=== PATIENT | female | born 1990 | race Caucasian/White ===

== ENCOUNTER 2018-03-26 08:29 | Inpatient (IN) | payer OTHER ==
[~2018-03-26 08:29] MED LIST: Acetaminophen 325 MG Tab PO PRN; Lidocaine 1% 30 ML SDV INJECT PRN; Ondansetron 4 MG/2 ML SDV IV PRN; Oxytocin/Normal Saline 30 UNIT/500 ML BAG IV SCH; Sodium Chloride 0.9% 10 ML Syringe FLUSH PRN; Tranexamic Acid 1,000 MG in Sodium Chloride 0.9% 100 ML IV PRN
[2018-03-26] MEDS ORDERED: Lactated Ringers 500 ML IV ONE (08:45)
[2018-03-26] MEDS: Misoprostol 25 MCG (1/4 of 100 MCG) Tab VAG PRN ×2 (10:23→14:42)
[2018-03-26] MEDS ORDERED: Misoprostol 400 MCG (4 X 100 MCG TAB) RECTAL PRN (12:00)
[2018-03-26] MEDS ORDERED: Methylergonovine 0.2 MG/1 ML Amp IM PRN (12:00)
[2018-03-26] MEDS ORDERED: Carboprost Tromethamine 250 MCG/1 ML Amp IM PRN (12:00)
[2018-03-26] MEDS ORDERED: Oxytocin/Normal Saline 30 UNIT/500 ML BAG IV SCH (12:45)
[2018-03-26] MEDS: Lactated Ringers 1,000 ML IV SCH ×2 (18:19→19:45)
--- NOTE | 2018-03-26 19:42 | PCM.LDHP ---
L&D History of Present Illness - General Date of Service: 03/26/18 (Admit H&P/OB induction) Admit Problem/Dx: Patient Status Order with Admit Dx/Problem 03/25/18 23:51 Patient Status [ADT] Routine Admission Diagnosis/Problem Admission Diagnosis/Problem Post-term infant with 40-42 completed weeks of gestation Source of Information: Patient, Family, Old Records, Provider, Other ( otes/EPIC [regnancy episode from [facility]) History Limitations: Reports: No Limitations - History of Present Illness Introduction:: Kelsey is a delightful 27yo WF @ 41weeks who presented to the labor and delivery floor for induction due to post-dates. - Related Data Allergies/Adverse Reactions: Allergies Allergy/AdvReac Type Severity Reaction Status Date / Time Penicillins Allergy Cannot Verified 01/21/18 13:09 Remember Home Medications: Home Meds Iron 325 mg PO BID 04/22/16 [History] Vits #93/Iron Fum/FA [ Formula Tablet] 1 tab PO DAILY 04/22/16 [History] Past Medical History HEENT History: Reports: None Cardiovascular History: Reports: None Respiratory History: Reports: None Gastrointestinal History: Reports: None Genitourinary History: Reports: None CLINICAL ORTHOPTIST History: Reports: , Therapeutic Other OB/BYN History: h Musculoskeletal History: Reports: None Neurological History: Reports: None Psychiatric History: Reports: None Endocrine/Metabolic History: Reports: None Hematologic History: Reports: Anemia Other Hematologic History: taking iron BID Immunologic History: Reports: None Oncologic (Cancer) History: Reports: None Dermatologic History: Reports: None - Infectious Disease History Infectious Disease History: Reports: Chicken Pox - Past Surgical History Head Surgeries/Procedures: Reports: None HEENT Surgical History: Reports: Tonsillectomy Musculoskeletal Surgical History: Reports: Arthroscopic Knee Social & Family History - Family History Family Medical History: Noncontributory Endocrine/Metabolic: Reports: Other (See Below) Other Endocrine/Metabolic Family History: mo;ther - "thyroid disease".  - Tobacco Use Smoking Status *Q: Never Smoker Second Hand Smoke Exposure: No - Caffeine Use Caffeine Use: Reports: Soda - Recreational Drug Use Recreational Drug Use: No H&P Review of Systems - Review of Systems: Review Of Systems: See Below General: Reports: No Symptoms HEENT: Reports: No Symptoms Pulmonary: Reports: No Symptoms Cardiovascular: Reports: No Symptoms Gastrointestinal: Reports: No Symptoms Genitourinary: Reports: No Symptoms Musculoskeletal: Reports: No Symptoms Skin: Reports: No Symptoms Psychiatric: Reports: No Symptoms Neurological: Reports: No Symptoms Hematologic/Lymphatic: Reports: No Symptoms Immunologic: Reports: No Symptoms L&D Exam - Exam Exam: See Below - Vital Signs Vital Signs: Last Vital Signs Temp 99.0 F 03/26/18 17:30 Pulse 66 03/26/18 17:30 Resp 18 03/26/18 17:30 BP 141/70 H 03/26/18 17:30 Pulse Ox 99 03/26/18 08:34 Weight: 251 lb - OB Specific Contraction Duration (sec): 60-90 Contraction Frequency (min): 1.5-2.5 Contraction Intensity: Mild to Moderate - Cabrera Score Cabrera Score Cervix Position: Posterior Cabrera Score Consistency: Medium Cabrera Score Effacement: 51-70% Cabrera Score Dilation: 1-2 cm Cabrera Score Infant's Station: -2 Cabrera Score Total: 5 - Exam General: Alert, Oriented HEENT: PERRLA, Conjunctiva Clear, EACs Clear, EOMI, Hearing Intact, Mucosa Moist & [place], Nares Patent, Normal Nasal Septum, Posterior Pharynx Clear, TMs Clear Neck: Supple, Trachea Midline Lungs: Clear to Auscultation, Normal Respiratory Effort Cardiovascular: Regular Rate, Regular Rhythm GI/Abdominal Exam: Normal Bowel Sounds, Soft, Non-Tender, No Organomegaly, No Distention, No Abnormal Bruit, No Mass, Pelvis Stable Rectal Exam: Normal Exam, Normal Rectal Tone Genitourinary: Normal external exam, Normal bimanual exam, Normal speculum exam Back Exam: Normal Inspection, Full Range of Motion Extremities: Normal Inspection, Normal Range of Motion, Non-Tender, No Pedal Edema, Normal Capillary Refill Skin: Warm, Dry, Intact Neurological: Cranial Nerves Intact, Reflexes Equal Bilateral Psychiatric: Alert, Normal Affect, Normal Mood - Patient Data Lab Results Last 24 hrs: Laboratory Results - last 24 hr 03/26/18 Range/Units 08:35 WBC 9.4 (5.0-10.0) 10^3/uL RBC 3.65 L (4.2-5.4) 10^6/uL Hgb 11.1 L (12.0-16.0) g/dL Hct 34.4 L (37.0-47.0) % MCV 94.2 (80-100) fL MCH 30.4 (27.0-34.0) pg MCHC 32.3 L (33.0-35.0) g/dL Plt Count 193 (150-450) 10^3/uL Result Diagrams: 03/26/18 08:35 Problem List Initiated/Reviewed/Updated: Yes Orders Last 24hrs: Active Orders 24 hr Category Date Time Status Patient Status [ADT] Routine ADT 03/25/18 23:51 Active Communication Order [RC] ASDIRECTED Care 03/25/18 23:51 Active Communication Order [RC] ASDIRECTED Care 03/25/18 23:51 Active Communication Order [RC] ASDIRECTED Care 03/25/18 23:51 Active Communication Order [RC] ASDIRECTED Care 03/25/18 23:51 Active Communication Order [RC] ASDIRECTED Care 03/25/18 23:51 Active Communication Order [RC] ASDIRECTED Care 03/26/18 00:02 Active Non Stress Test [RC] PER UNIT ROUTINE Care 03/25/18 23:51 Active Notify Provider Vital Signs OB [RC] ASDIRECTED Care 03/25/18 23:51 Active Notify Provider [RC] PRN Care 03/25/18 23:51 Active Notify Provider [RC] PRN Care 03/25/18 23:51 Active Notify Provider [RC] PRN Care 03/26/18 00:02 Active Notify Provider [RC] STAT Care 03/25/18 23:51 Active Peripheral IV Care [RC] . DIRECTED Care 03/25/18 23:52 Active Pump Management, Intrathecal [RC] ASDIRECTED Care 03/26/18 08:00 Active Up ad Teresa [RC] PER UNIT ROUTINE Care 03/25/18 23:51 Active Vaginal Exam [RC] PRN Care 03/25/18 23:51 Active Vital Signs [RC] PER UNIT ROUTINE Care 03/25/18 23:51 Active Acetaminophen [Tylenol] Med 03/25/18 23:51 Active 650 mg PO Q4H PRN Carboprost Tromethamine [Hemabate DS] Med 03/26/18 12:00 Active 250 mcg IM ASDIRECTED PRN Lactated Ringers [Ringers, Lactated] 1,000 ml Med 03/25/18 23:45 Active IV ASDIRECTED Lidocaine 1% [Xylocaine-MPF 1%] Med 03/26/18 08:00 Active 30 ml INJECT ASDIRECTED PRN Methylergonovine [Methergine] Med 03/26/18 12:00 Active 0.2 mg IM ASDIRECTED PRN Ondansetron [Zofran] Med 03/26/18 00:01 Active 4 mg IV Q4H PRN Oxytocin/Normal Saline [Pitocin in NS 30 UNIT/500 ML] Med 03/26/18 00:15 Active 30 unit in 500 ml IV TITRATE Oxytocin/Normal Saline [Pitocin in NS 30 UNIT/500 ML] Med 03/26/18 12:45 Active 30 unit in 500 ml IV TITRATE Sodium Chloride 0.9% [Saline Flush] Med 03/25/18 23:51 Active 10 ml FLUSH ASDIRECTED PRN Sodium Chloride 0.9% [Saline Flush] Med 03/26/18 00:01 Active 10 ml FLUSH ASDIRECTED PRN Tranexamic Acid [Cyklokapron] 1,000 mg Med 03/26/18 00:01 Active Sodium Chloride 0.9% [Normal Saline] 100 ml IV ONETIME miSOPROStol [Cytotec] Med 03/26/18 08:00 Active 50 mcg VAG Q4H PRN miSOPROStol [Cytotec] Med 03/26/18 12:00 Active 800 mcg RECTAL ASDIRECTED PRN Peripheral IV Insertion Adult [OM.PC] Urgent Oth 03/25/18 23:51 Ordered Saline Lock Insert [OM.PC] Routine Oth 03/26/18 00:02 Ordered Resuscitation Status Routine Resus Stat 03/26/18 00:01 Ordered Medication Orders Acetaminophen (Tylenol) 650 mg PO Q4H PRN PRN Reason: Pain/Fever Carboprost Tromethamine (Hemabate Ds) 250 mcg IM ASDIRECTED PRN PRN Reason: HEMORRHAGE Lactated Ringer's (Ringers, Lactated) 1,000 mls @ 125 mls/hr IV ASDIRECTED PATITO Last Admin: 03/26/18 18:19 Dose: 125 mls/hr Oxytocin/Sodium Chloride (Pitocin In Ns 30 Unit/500 Ml) 30 unit in 500 mls @ 2 mls/hr IV TITRATE PATITO; Protocol Tranexamic Acid 1,000 mg/ (Sodium Chloride) 110 mls @ 660 mls/hr IV ONETIME PRN PRN Reason: Bleeding Oxytocin/Sodium Chloride (Pitocin In Ns 30 Unit/500 Ml) 30 unit in 500 mls @ 2 mls/hr IV TITRATE PATITO; Protocol Lidocaine HCl (Xylocaine-Mpf 1%) 30 ml INJECT ASDIRECTED PRN PRN Reason: Perineal Repair Methylergonovine Maleate (Methergine) 0.2 mg IM ASDIRECTED PRN PRN Reason: Hemorrhage Misoprostol (Cytotec) 50 mcg VAG Q4H PRN PRN Reason: cervical ripening Last Admin: 03/26/18 14:42 Dose: 50 mcg Admin: 03/26/18 10:23 Dose: 50 mcg Misoprostol (Cytotec) 800 mcg RECTAL ASDIRECTED PRN PRN Reason: Hemorrhage Ondansetron HCl (Zofran) 4 mg IV Q4H PRN PRN Reason: Nausea/Vomiting Sodium Chloride (Saline Flush) 10 ml FLUSH ASDIRECTED PRN PRN Reason: Keep Vein Open Sodium Chloride (Saline Flush) 10 ml FLUSH ASDIRECTED PRN PRN Reason: Keep Vein Open Assessment/Plan Comment:: Assessment: 27yo @ 41 weeks induction for post-dates blood type B+ GBS negative RI Plan Admit to OB for induction due to postdates. discussed options--will go with the Cytotec for cervical ripening as discussed. CBC, routine admit orders further management pending her course in labor. consider repeat cytotec, pitocin infusion or AROM if indicated. see clinic notes, EPIC episode for further details. [facility]mb
--- NOTE | 2018-03-26 20:48 | PCM.DEL ---
L & D Note - General Info Date of Service: 03/26/18 (time of : 2005) Mother's Due Date: 03/19/18 - Delivery Note Labor: Augmented by ARM Cervical Ripening Method: Misoprostil Delivery Outcome: Livebirth Infant Delivery Method: Spontaneous Vaginal Delivery-Single Infant Delivery Mode: Spontaneous Presentation: Left Occiput Anterior (ROBERT) Nuchal Cord: None Anesthesia Type: None, Local Anesthetic: Lidocaine (Xylocaine) 1% Plain Local Anesthetic Volume: 5cc Amniotic Fluid Description: Clear Episiotomy Type: None Laceration: None Placenta: Intact, Spontaneous Cord: 3 Vessels Estimated Blood Loss: 100 Resuscitation Needed: No : Bulb Syringe Provider: Khushboo Macedo Score 1 min: 8 Score 5 min: 9 Induction Criteria - Induction Gestational Age >/= 39 wks: Yes Medical Indication: postdates >41 weeks Estimated Pelvis: Reports: Adequate Reassuring Monitoring Strip: Yes Absence of Tachy Systole: Yes - Augmentation Estimated Pelvis: Reports: Adequate Weight Estimated:: Reports: AGA Reassuring Monitoring Strip: Yes Absence of Tachy Systole: Yes - General Info Date of Service: 03/26/18 (Time of Delivery ) Admission Dx/Problem (Free Text): Patient Status Order with Admit Dx/Problem 03/25/18 23:51 Patient Status [ADT] Routine Admission Diagnosis/Problem Admission Diagnosis/Problem Post-term with 40-42 completed weeks of gestation - Patient Data Vitals - Most Recent: Last Vital Signs Temp 98.2 F 03/26/18 18:45 Pulse 80 03/26/18 18:30 Resp 16 03/26/18 18:30 BP 140/74 03/26/18 18:30 Pulse Ox 99 03/26/18 08:34 Weight - Most Recent: 251 lb I&O - Last 24 Hours: Intake & Output 03/26/18 03/26/18 03/26/18 06:59 14:59 22:59 Intake Total 1000 Balance 1000 Lab Results Last 24 Hours: Laboratory Results - last 24 hr 03/26/18 Range/Units 08:35 WBC 9.4 (5.0-10.0) 10^3/uL RBC 3.65 L (4.2-5.4) 10^6/uL Hgb 11.1 L (12.0-16.0) g/dL Hct 34.4 L (37.0-47.0) % MCV 94.2 (80-100) fL MCH 30.4 (27.0-34.0) pg MCHC 32.3 L (33.0-35.0) g/dL Plt Count 193 (150-450) 10^3/uL Med Orders - Current: Current Medications Acetaminophen (Tylenol) 650 mg PO Q4H PRN PRN Reason: Pain/Fever Carboprost Tromethamine (Hemabate Ds) 250 mcg IM ASDIRECTED PRN PRN Reason: HEMORRHAGE Lactated Ringer's (Ringers, Lactated) 1,000 mls @ 125 mls/hr IV ASDIRECTED PATITO Last Admin: 03/26/18 19:45 Dose: 125 mls/hr Oxytocin/Sodium Chloride (Pitocin In Ns 30 Unit/500 Ml) 30 unit in 500 mls @ 2 mls/hr IV TITRATE PATITO; Protocol Tranexamic Acid 1,000 mg/ (Sodium Chloride) 110 mls @ 660 mls/hr IV ONETIME PRN PRN Reason: Bleeding Oxytocin/Sodium Chloride (Pitocin In Ns 30 Unit/500 Ml) 30 unit in 500 mls @ 2 mls/hr IV TITRATE PATITO; Protocol Lidocaine HCl (Xylocaine-Mpf 1%) 30 ml INJECT ASDIRECTED PRN PRN Reason: Perineal Repair Last Admin: 03/26/18 20:00 Dose: 30 ml Methylergonovine Maleate (Methergine) 0.2 mg IM ASDIRECTED PRN PRN Reason: Hemorrhage Misoprostol (Cytotec) 50 mcg VAG Q4H PRN PRN Reason: cervical ripening Last Admin: 03/26/18 14:42 Dose: 50 mcg Misoprostol (Cytotec) 800 mcg RECTAL ASDIRECTED PRN PRN Reason: Hemorrhage Ondansetron HCl (Zofran) 4 mg IV Q4H PRN PRN Reason: Nausea/Vomiting Sodium Chloride (Saline Flush) 10 ml FLUSH ASDIRECTED PRN PRN Reason: Keep Vein Open Sodium Chloride (Saline Flush) 10 ml FLUSH ASDIRECTED PRN PRN Reason: Keep Vein Open Discontinued Medications Oxytocin/Sodium Chloride (Pitocin In Ns 30 Unit/500 Ml) 30 unit in 500 mls @ 2 mls/hr IV TITRATE PATITO; Protocol Lactated Ringer's (Ringers, Lactated) 500 mls @ 500 mls/hr IV .BOLUS ONE Stop: 03/26/18 09:44 - Exam (Female) Exam: Other (perineum intact) - Problem List & Annotations (1) Blood type B+ SNOMED Code(s): 867856879 Code(s): Z67.20 - TYPE B BLOOD, RH POSITIVE Status: Acute Current Visit: No (2) Group B Streptococcus not isolated SNOMED Code(s): 602151449 Code(s): BSZ3976 - Status: Acute Current Visit: No (3) (normal spontaneous vaginal delivery) SNOMED Code(s): 17886196 Code(s): O80 - ENCOUNTER FOR FULL-TERM UNCOMPLICATED DELIVERY Status: Acute Priority: High Current Visit: No (4) Prolonged , antepartum condition or complication SNOMED Code(s): 909441076 Code(s): O48.1 - PROLONGED Status: Acute Current Visit: No (5) Rubella immune SNOMED Code(s): 301542407 Code(s): Z78.9 - OTHER SPECIFIED HEALTH STATUS Status: Acute Current Visit: No - Problem List Review Problem List Initiated/Reviewed/Updated: Yes - My Orders Last 24 Hours: My Active Orders 03/25/18 23:45 Lactated Ringers [Ringers, Lactated] 1,000 ml IV ASDIRECTED 03/25/18 23:51 Patient Status [ADT] Routine Communication Order [RC] ASDIRECTED Communication Order [RC] ASDIRECTED Communication Order [RC] ASDIRECTED Communication Order [RC] ASDIRECTED Communication Order [RC] ASDIRECTED Non Stress Test [RC] PER UNIT ROUTINE Notify Provider Vital Signs OB [RC] ASDIRECTED Notify Provider [RC] PRN Notify Provider [RC] PRN Notify Provider [RC] STAT Up ad Teresa [RC] PER UNIT ROUTINE Vaginal Exam [RC] PRN Vital Signs [RC] PER UNIT ROUTINE Acetaminophen [Tylenol] 650 mg PO Q4H PRN Sodium Chloride 0.9% [Saline Flush] 10 ml FLUSH ASDIRECTED PRN Peripheral IV Insertion Adult [OM.PC] Urgent 03/25/18 23:52 Peripheral IV Care [RC] . DIRECTED 03/26/18 00:01 Ondansetron [Zofran] 4 mg IV Q4H PRN Sodium Chloride 0.9% [Saline Flush] 10 ml FLUSH ASDIRECTED PRN Tranexamic Acid [Cyklokapron] 1,000 mg Sodium Chloride 0.9% [Normal Saline] 100 ml IV ONETIME Resuscitation Status Routine 03/26/18 00:02 Communication Order [RC] ASDIRECTED Notify Provider [RC] PRN Saline Lock Insert [OM.PC] Routine 03/26/18 00:15 Oxytocin/Normal Saline [Pitocin in NS 30 UNIT/500 ML] 30 unit in 500 ml IV TITRATE 03/26/18 08:00 Pump Management, Intrathecal [RC] ASDIRECTED Lidocaine 1% [Xylocaine-MPF 1%] 30 ml INJECT ASDIRECTED PRN miSOPROStol [Cytotec] 50 mcg VAG Q4H PRN 03/26/18 12:00 Carboprost Tromethamine [Hemabate DS] 250 mcg IM ASDIRECTED PRN Methylergonovine [Methergine] 0.2 mg IM ASDIRECTED PRN miSOPROStol [Cytotec] 800 mcg RECTAL ASDIRECTED PRN 03/26/18 12:45 Oxytocin/Normal Saline [Pitocin in NS 30 UNIT/500 ML] 30 unit in 500 ml IV TITRATE - Plan Plan:: Assessment: 27yo @ 41 weeks induction for post-dates blood type B+ GBS negative RI Plan Admit to OB for induction due to postdates. discussed options--will go with the Cytotec for cervical ripening as discussed. CBC, routine admit orders further management pending her course in labor. consider repeat cytotec, pitocin infusion or AROM if indicated. see clinic notes, EPIC episode for further details. [facility] Delivery Note: Vaginal delivery without complication local anesthesia, intact perineum viable male 8lb 8oz APGARs 8 & 9 EBL 100cc hmb
[2018-03-26] MEDS ORDERED: Benzocaine/Menthol 20%-0.5% Spray 56 GM Canister TOP PRN (21:03)
[2018-03-26] MEDS ORDERED: Simethicone 80 MG Tab.Chew PO PRN (21:03)
[2018-03-26] MEDS ORDERED: Zolpidem 5 MG Tab PO PRN (21:03)
[2018-03-26] MEDS: Ibuprofen 800 MG Tab PO PRN (21:36)
[2018-03-26] MEDS: Docusate Sodium 100 MG Cap PO PRN (21:37)
[2018-03-27] MEDS: Ibuprofen 800 MG Tab PO PRN ×2 (05:45→21:38)
[2018-03-27] MEDS: Docusate Sodium 100 MG Cap PO PRN ×2 (09:20→21:38)
[2018-03-27] MEDS: Prenatal Multivitamin with Calcium/Folic Acid/Iron Tab PO SCH (09:20)
--- NOTE | 2018-03-27 13:22 | PN ---
DATE: 03/27/2018 SUBJECTIVE: The patient is day #1 from a vaginal delivery. She is a G3, P2. Mom and baby are both doing well. PHYSICAL EXAMINATION: Vital Signs: Temperature 37.1, heart rate 75 to 83, blood pressure 118 to 142 over 60 to 70, and respiratory rate 18. Abdomen: The patient's fundus is firm below the umbilicus. Lochia is minimal. Extremities: Have no tenderness. No edema. LABORATORY DATA: Blood type is B positive. She is rubella immune. Hemoglobin prior to delivery was 11.1. ASSESSMENT AND PLAN: day #1, status post vaginal delivery at term. Mom and baby are both doing well. She received routine care today and likely discharge tomorrow. OSMANY /[id number] MTDNithin
[2018-03-27 23:08] VITALS: BP 124/77
[2018-03-28] MEDS: Prenatal Multivitamin with Calcium/Folic Acid/Iron Tab PO SCH (08:17)
[2018-03-28] MEDS: Docusate Sodium 100 MG Cap PO PRN (08:18)
--- NOTE | 2018-03-28 12:50 | DISCH ---
DATE: 03/28/2018 SUBJECTIVE: The patient was seen on 03/28/[address] [facility]. The patient is day #2 from a vaginal delivery. Her and baby are both doing well. Bleeding is minimal. PHYSICAL EXAMINATION: Vital Signs: Temperature 36.9; she has been afebrile. Heart rate 74 to 86, blood pressure 124 to 140 over 66 to 77, respiratory rate 16 to 18, and O2 saturation 100%. Extremities: Have no tenderness, no edema. Abdomen: Fundus is firm, below the umbilicus. General: The patient appears well and is with baby. LABORATORY DATA: The patient's pre-delivery hemoglobin was 11.1; and this morning, white blood cell count is normal at 8.3, hemoglobin 10.0, platelets are still 193. The patient is B positive and rubella immune. ASSESSMENT AND PLAN: day #2 from a vaginal delivery at term. Mom and baby are both doing well. We will discharge her to home with followup in 6 weeks. [facility] /[id number]
== END 2018-03-28 12:57 | disposition home or self-care (01) | DRG 775 ==
LOC: DL.OB 08:29 → OBSVTOIN 20:06 → DL.MS 03-27 17:23
PROVIDERS: ADMIT Family Medicine; ATTEND Family Medicine
PROC: 10E0XZZ Delivery of Products of Conception, External Approach (ICD-10-PCS; principal; 2018-03-26)
PROC: 3E0P7VZ Introduction of Hormone into Female Reproductive, Via Natural or Artificial Opening (ICD-10-PCS; 2018-03-26)
PROC: 10907ZC Drainage of Amniotic Fluid, Therapeutic from Products of Conception, Via Natural or Artificial Opening (ICD-10-PCS; 2018-03-26)
DX: O48.0 Post-term pregnancy (principal); Z37.0 Single live birth; Z3A.41 41 weeks gestation of pregnancy; Z67.20 Type B blood, Rh positive; Z88.0 Allergy status to penicillin
CPT/HCPCS: 36415; 59025; 59409; 85027; A9270-GY; J2590; J7120

== ENCOUNTER 2019-08-26 20:37 | Emergency (ER) | payer BC, OTHER ==
[2019-08-26 20:56] VITALS: BP 145/71; PULSE 76
--- NOTE | 2019-08-26 20:57 | EDM.PDOC ---
ED HPI GENERAL MEDICAL PROBLEM - General Chief Complaint: Genitourinary Problem Stated Complaint: POSSIBLE KIDNEY STONES Time Seen by Provider: 08/26/19 20:54 Source of Information: Reports: Patient History Limitations: Reports: No Limitations - History of Present Illness INITIAL COMMENTS - FREE TEXT/NARRATIVE: sudden onset hour [employer] right flank radiating to right front. occurred while watching TV. denies N&V. constant dull ache with occasional sharp. denies eating spicy/fried oily foods prior. Right Flank Pain Score (Numeric/FACES): 7 - Related Data Allergies Allergy/AdvReac Type Severity Reaction Status Date / Time Penicillins Allergy Cannot Verified 08/26/19 20:46 Remember Home Meds: Home Meds . 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: , Therapeutic Other [employer] BLASTING History: h Musculoskeletal History: Reports: None Neurological History: Reports: None Psychiatric History: Reports: None Endocrine/Metabolic History: Reports: None Hematologic History: Reports: Anemia Other Hematologic History: taking iron BID Immunologic History: Reports: None Oncologic (Cancer) History: Reports: None Dermatologic History: Reports: None - Infectious Disease History Infectious Disease History: Reports: Chicken Pox - Past Surgical History Head Surgeries/Procedures: Reports: None HEENT Surgical History: Reports: Tonsillectomy Musculoskeletal Surgical History: Reports: Arthroscopic Knee Social & Family History - Family History Family Medical History: Noncontributory Endocrine/Metabolic: Reports: Other (See Below) Other Endocrine/Metabolic Family History: mo;ther - "thyroid disease".  - Caffeine Use Caffeine Use: Reports: Soda ED ROS GENERAL - Review of Systems Review Of Systems: Comprehensive ROS is negative, except as noted in HPI. ED EXAM, RENAL/ - Physical Exam Exam: See Below Exam Limited By: No Limitations General Appearance: Alert, WD/WN, Mild Distress, Other (discomfort). No: Active Emesis Ears: Hearing Grossly Normal Throat/Mouth: Normal Voice, No Airway Compromise Head: Atraumatic Neck: Non-Tender, Full Range of Motion Respiratory/Chest: No Respiratory Distress Cardiovascular: Regular Rate, Rhythm GI/Abdominal: Soft, Tender, Other (minor RUQ). No: Distended, Guarding, Rigid, Rebound Back Exam: CVA Tenderness (R) Neurological: Alert, Oriented, Normal Cognition, Normal Gait, No Motor/Sensory Deficits Psychiatric: Normal Affect, Normal Mood Skin Exam: Warm, Dry, Normal Color Lymphatic: No Adenopathy Course - Vital Signs Last Recorded V/S: Last Vital Signs Temp 37.2 C 08/26/19 20:55 Pulse 76 08/26/19 20:55 Resp 18 08/26/19 20:55 BP 145/71 H 08/26/19 20:55 Pulse Ox 100 08/26/19 20:55 - Orders/Labs/Meds Orders: Active Orders 24 hr Category Date Time Status CULTURE URINE [RM] Routine Lab 08/26/19 20:44 Received Nitrofurantoin Jenkins/Macrocryst [Macrobid] Med 08/26/19 22:20 Once 100 mg PO ONETIME ONE Labs: Laboratory Tests 08/26/19 08/26/19 08/26/19 Range/Units 20:44 20:44 21:00 WBC 7.6 (5.0-10.0) 10^3/uL RBC 4.24 (4.2-5.4) 10^6/uL Hgb 13.3 D (12.0-16.0) g/dL Hct 39.3 (37.0-47.0) % MCV 92.7 (80-100) fL MCH 31.4 (27.0-34.0) pg MCHC 33.8 (33.0-35.0) g/dL Plt Count 300 D (150-450) 10^3/uL Neut % (Auto) 36.7 L (42.2-75.2) % Lymph % (Auto) 52.6 H (20.5-50.1) % Jenkins % (Auto) 7.6 (2-8) % Eos % (Auto) 2.6 (1.0-3.0) % Baso % (Auto) 0.5 (0.0-1.0) % Sodium (135-145) mmol/L Potassium (3.6-5.0) mmol/L Chloride (101-111) mmol/L Carbon Dioxide (21.0-31.0) mmol/L Anion Gap BUN (7-18) mg/dL Creatinine (0.6-1.3) mg/dL Est Cr Clr Drug Dosing mL/min Estimated GFR (MDRD) BUN/Creatinine Ratio Glucose (74-105) mg/dL Calcium (8.4-10.2) mg/dl Total Bilirubin (0.2-1.0) mg/dL AST (10-42) IU/L ALT (10-60) IU/L Alkaline Phosphatase (42-121) IU/L Total Protein (6.7-8.2) g/dl Albumin (3.2-5.5) g/dl Globulin Albumin/Globulin Ratio Urine Color Yellow (YELLOW) Urine Appearance Slightly cloudy (CLEAR) Urine pH 7.0 (5.0-9.0) Ur Specific [place] 1.020 (1.005-1.030) Urine Protein Negative (NEGATIVE) Urine Glucose (UA) Negative (NEGATIVE) Urine Ketones 15 H (NEGATIVE) Urine Occult Blood Trace-intact H (NEGATIVE) Urine Nitrite Negative (NEGATIVE) Urine Bilirubin Negative (NEGATIVE) Urine Urobilinogen 0.2 (0.2-1.0) mg/dL Ur Leukocyte Esterase Trace H (NEGATIVE) Urine RBC 0-5 /HPF Urine WBC 5-10 H (0-5/HPF) /HPF Ur Epithelial Cells Moderate H (NOT SEEN) /HPF Urine Bacteria Moderate H (0-FEW/HPF) /HPF Urine Yeast Few H (NOT SEEN) /HPF Urine HCG, Qual Negative 08/26/19 Range/Units 21:00 WBC (5.0-10.0) 10^3/uL RBC (4.2-5.4) 10^6/uL Hgb (12.0-16.0) g/dL Hct (37.0-47.0) % MCV (80-100) fL MCH (27.0-34.0) pg MCHC (33.0-35.0) g/dL Plt Count (150-450) 10^3/uL Neut % (Auto) (42.2-75.2) % Lymph % (Auto) (20.5-50.1) % Jenkins % (Auto) (2-8) % Eos % (Auto) (1.0-3.0) % Baso % (Auto) (0.0-1.0) % Sodium 137 (135-145) mmol/L Potassium 3.4 L (3.6-5.0) mmol/L Chloride 100 L (101-111) mmol/L Carbon Dioxide 25.0 (21.0-31.0) mmol/L Anion Gap 15.4 BUN 18 (7-18) mg/dL Creatinine 1.0 (0.6-1.3) mg/dL Est Cr Clr Drug Dosing 95.79 mL/min Estimated GFR (MDRD) > 60 BUN/Creatinine Ratio 18.00 Glucose 86 (74-105) mg/dL Calcium 9.5 (8.4-10.2) mg/dl Total Bilirubin 0.7 (0.2-1.0) mg/dL AST 30 (10-42) IU/L ALT 25 (10-60) IU/L Alkaline Phosphatase 33 L (42-121) IU/L Total Protein 7.4 (6.7-8.2) g/dl Albumin 4.7 (3.2-5.5) g/dl Globulin 2.7 Albumin/Globulin Ratio 1.74 Urine Color (YELLOW) Urine Appearance (CLEAR) Urine pH (5.0-9.0) Ur Specific [place] (1.005-1.030) Urine Protein (NEGATIVE) Urine Glucose (UA) (NEGATIVE) Urine Ketones (NEGATIVE) Urine Occult Blood (NEGATIVE) Urine Nitrite (NEGATIVE) Urine Bilirubin (NEGATIVE) Urine Urobilinogen (0.2-1.0) mg/dL Ur Leukocyte Esterase (NEGATIVE) Urine RBC /HPF Urine WBC (0-5/HPF) /HPF Ur Epithelial Cells (NOT SEEN) /HPF Urine Bacteria (0-FEW/HPF) /HPF Urine Yeast (NOT SEEN) /HPF Urine HCG, Qual - Re-Assessments/Exams Free Text/Narrative Re-Assessment/Exam: 08/26/19 21:59 re-exam; states pain almost gone. 08/26/19 22:21 results discussed with pt whose pain is now gone Departure - Departure Time of Disposition: 22:21 Disposition: Home, Self-Care 01 Condition: Good Clinical Impression: UTI, Urinary tract infectious disease - Discharge Information Instructions: Urinary Tract Infection, Adult, [id number] Forms: ED Department Discharge Additional Instructions: 1) drink lots of liquids 2) follow up at clinic 3) return if there is any change or concern rx given; macrobid 100mg bid x 20 Sepsis Event Note - Focused Exam Vital Signs: Vital Signs Temp Pulse Resp BP Pulse Ox 08/26/19 20:55 37.2 C 76 18 145/71 H 100 Date Exam was Performed: 08/26/19 Time Exam was Performed: 22:21 - My Orders Last 24 Hours: My Active Orders 08/26/19 20:44 CULTURE URINE [RM] Routine 08/26/19 22:20 Nitrofurantoin Jenkins/Macrocryst [Macrobid] 100 mg PO ONETIME ONE - Assessment/Plan Last 24 Hours: My Active Orders 08/26/19 20:44 CULTURE URINE [RM] Routine 08/26/19 22:20 Nitrofurantoin Jenkins/Macrocryst [Macrobid] 100 mg PO ONETIME ONE
[2019-08-26 21:26] LABS: ANION GAP 15.4; CHLORIDE,CL 100 mmol/L (101-111); SODIUM,NA 137 mmol/L (135-145)
[2019-08-26] MEDS ORDERED: Nitrofurantoin Monohydrate/Macrocrystalline 100 MG Cap PO ONE (22:20)
== END 2019-08-26 22:34 | disposition home or self-care (01) ==
LOC: DL.ED 20:37
DX: N39.0 Urinary tract infection, site not specified (principal); Z88.0 Allergy status to penicillin
CPT/HCPCS: 36415; 80053; 81001; 81025; 85025; 87086; 99284; A9270

== ENCOUNTER 2023-07-08 09:17 | Emergency (ER) | payer BC ==
[2023-07-08 09:32] VITALS: BP 120/73; PULSE 79
[2023-07-08 09:52] LABS: BASOPHILS PERCENT AUTO 0.5 % (0.0-1.0); EOSINOPHILS PERCENT AUTO 0.7 % (1.0-3.0); HEMATOCRIT 34.9 % (37.0-47.0); HEMOGLOBIN 11.6 g/dL (12.0-16.0); LYMPHOCYTES PERCENT AUTO 19.1 % (20.5-50.1); MEAN CORPUSCULAR HEMOGLOBIN 30.1 pg (27.0-34.0); MEAN CORPUSCULAR HGB CONC 33.2 g/dL (33.0-35.0); MEAN CORPUSCULAR VOLUME 90.6 fL (80-100); MONOCYTES PERCENT AUTO 6.7 % (2-8); PLATELET COUNT,PLT 323 10^3/uL (150-450); RED BLOOD CELL COUNT 3.85 10^6/uL (4.2-5.4); WHITE BLOOD CELL COUNT,WBC 8.9 10^3/uL (5.0-10.0)
[2023-07-08 10:02] LABS: APPEARANCE,URINE CLOUDY (CLEAR); BILIRUBIN,URINE NEGATIVE (NEGATIVE); COLOR,URINE RED (YELLOW); GLUCOSE,URINE NEGATIVE (NEGATIVE); KETONES,URINE NEGATIVE (NEGATIVE); LEUKOCYTE ESTERASE,URINE NEGATIVE (NEGATIVE); NITRITE,URINE NEGATIVE (NEGATIVE); OCCULT BLOOD,URINE MODERATE (NEGATIVE); PROTEIN,URINE >=300 (NEGATIVE)
[2023-07-08 10:05] LABS: AMORPHOUS SEDIMENT,URINE RARE /HPF (NOT SEEN); BACTERIA,URINE RARE /HPF (0-FEW/HPF); EPITHELIAL CELLS,URINE NOT SEEN /HPF (NOT SEEN); MUCUS,URINE NOT SEEN /LPF (NOT SEEN); RBC,URINE PACKED /HPF (0-5)
[2023-07-08] MEDS ORDERED: Doxycycline Monohydrate 100 MG Cap PO ONE (11:23)
[2023-07-08] MEDS ORDERED: Misoprostol 400 MCG (4 X 100 MCG TAB) BUCCAL ONE (11:23)
[2023-07-08] MEDS ORDERED: Sodium Chloride 0.9% 1,000 ML IV ONE (11:30)
== END 2023-07-08 12:34 | disposition home or self-care (01) ==
LOC: DL.ED 09:17
DX: O03.9 Complete or unspecified spontaneous abortion without complication (principal); Z86.16 Personal history of COVID-19; Z90.49 Acquired absence of other specified parts of digestive tract; Z88.0 Allergy status to penicillin
CPT/HCPCS: 36415; 76801; 81001; 84702; 85025; 96360; 99284; 99284-25; A9270-GY; J7030

== ENCOUNTER 2025-03-06 09:29 | Inpatient (IN) | payer BC ==
[2025-03-06] MEDS ORDERED: Carboprost Tromethamine 250 MCG/1 ML Amp IM PRN (10:07)
[2025-03-06] MEDS ORDERED: Ondansetron 4 MG/2 ML SDV IVPUSH PRN (10:07)
[2025-03-06] MEDS ORDERED: Sodium Chloride 0.9% 10 ML Syringe FLUSH PRN (10:07)
[2025-03-06] MEDS ORDERED: fentaNYL 100 MCG/2 ML SDV IVPUSH PRN (10:07)
[2025-03-06] MEDS ORDERED: Oxytocin/Lactated Ringers 30 UNIT/500 ML BAG IV SCH (10:15)
[2025-03-06] MEDS ORDERED: Misoprostol 25 MCG (1/4 of 100 MCG) Tab PO SCH (10:15)
[2025-03-06 12:21] LABS: PLATELET COUNT,PLT 210.0 10^3/uL (150-450); RED BLOOD CELL COUNT 3.59 10^6/uL (4.2-5.4); WHITE BLOOD CELL COUNT,WBC 7.8 10^3/uL (5.0-10.0)
[2025-03-06] MEDS: Misoprostol 50 MCG (1/2 of 100 MCG) Tab PO SCH (13:19)
[2025-03-07] MEDS: Lactated Ringers 1,000 ML IV SCH (15:00)
[2025-03-07] MEDS: Oxytocin/Normal Saline 30 UNIT/500 ML BAG IV SCH (16:08)
[2025-03-07] MEDS ORDERED: Oxytocin 10 Units/1 ML SDV IM PRN (19:16)
[2025-03-07] MEDS ORDERED: Carboprost Tromethamine 250 MCG/1 ML Amp IM PRN (19:16)
[2025-03-07] MEDS ORDERED: Sodium Chloride 0.9% 10 ML Syringe FLUSH PRN (19:16)
[2025-03-07] MEDS ORDERED: Witch Hazel Medicated Pads 100/Jar TOP PRN (21:26)
[2025-03-07] MEDS: Benzocaine/Menthol 20%-0.5% Spray 78 GM Cannister TOP PRN (23:20)
[2025-03-08] MEDS: Lactated Ringers 1,000 ML IV ONE (06:56)
[2025-03-08] MEDS: Prenatal Multivitamin with Calcium/Folic Acid/Iron Tab PO SCH (08:25)
[2025-03-08 20:38] VITALS: BP 129/66; PULSE 65
== END 2025-03-08 20:00 | disposition home or self-care (01) | DRG 560 ==
LOC: DL.OB 11:58 → OBSVTOIN 03-07 18:49
PROVIDERS: ADMIT Family Medicine; ATTEND Family Medicine
PROC: 3E0R3BZ Introduction of Anesthetic Agent into Spinal Canal, Percutaneous Approach (ICD-10-PCS; principal; 2025-03-07)
PROC: 10E0XZZ Delivery of Products of Conception, External Approach (ICD-10-PCS; principal; 2025-03-07)
PROC: 3E0DXGC Introduction of Other Therapeutic Substance into Mouth and Pharynx, External Approach (ICD-10-PCS; principal; 2025-03-07)
PROC: 10907ZC Drainage of Amniotic Fluid, Therapeutic from Products of Conception, Via Natural or Artificial Opening (ICD-10-PCS; principal; 2025-03-07)
DX: O48.0 Post-term pregnancy (principal); Z3A.40 40 weeks gestation of pregnancy; Z37.0 Single live birth; Z88.0 Allergy status to penicillin; O99.02 Anemia complicating childbirth; Z86.16 Personal history of COVID-19; Z90.49 Acquired absence of other specified parts of digestive tract; Z98.890 Other specified postprocedural states
CPT/HCPCS: 36415; 51702; 59409; 85027; A9270-GY; J2590; J7120